=== PATIENT | female | born 1955 | race Caucasian/White ===

== ENCOUNTER → 2017-09-03 | Outpatient (CLI) | payer OTHER ==
[~2017-09-03] MED LIST: REGADENOSON 0.4 MG/5 ML DISP.SYRIN. IV
== END | disposition home or self-care (01) ==
LOC: PCVCIMAG 08:47
DX: I11.0 Hypertensive heart disease with heart failure (principal); I50.32 Chronic diastolic (congestive) heart failure; R06.09 Other forms of dyspnea; I08.1 Rheumatic disorders of both mitral and tricuspid valves; R53.83 Other fatigue; I25.2 Old myocardial infarction
CPT/HCPCS: 78452; 93017; 93306; A9500; J2785